=== PATIENT | female | born 1995 | race Caucasian/White ===

== ENCOUNTER 2016-08-11 14:33 | Emergency (ER) | payer OTHER ==
--- NOTE | 2016-08-11 16:18 | RAD ---
INDICATION: Pain left fifth metatarsal COMPARISON: None TECHNIQUE: AP, lateral, and oblique views were obtained. FINDINGS: The bony structures, joint spaces, and soft tissues are normal for age. IMPRESSION: NO ACUTE FRACTURE
--- NOTE | 2016-08-11 16:44 | UC ---
Lower Extremity/Ankle HPI - HPI Summary HPI Summary: Patient landed wrong sureing a cheeleading event, since then she has had pain in the lat left foot. no visible swelling noted. 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 - History of Current Complaint Chief Complaint: UCLowerExtremity Stated Complaint: LEFT FOOT INJURY Time Seen by Provider: 08/11/16 15:51 Hx Obtained From: Patient Hx Last Menstrual Period: 07/20/16 ?: No Onset/Duration: Sudden Onset, Lasting Days Severity Initially: Severe Severity Currently: Moderate Pain Intensity: 6 Pain Scale Used: 0-10 Numeric Aggravating Factor(s): Standing, Ambulation Alleviating Factor(s): Nothing Able to Bear Weight: No - Allergies/Home Medications Allergies/Adverse Reactions: Allergies Allergy/AdvReac Type Severity Reaction Status Date / Time [place] Allergy Swelling Verified 08/11/16 15:45 Of Face,Lips,& Throat Tree Nuts Allergy Swelling Verified 08/11/16 15:45 Of Face,Lips,& Throat Home Medications: Home Medications NK [No Home Medications Reported] 08/11/16 [History Confirmed 08/11/16] PMH/Surg Hx/FS Hx/Imm Hx Previously Healthy: Yes - Surgical History Surgical History: None - Family History Known Family History: Positive: Blood Disorder - factor 2 Negative: Hypertension - Social History Alcohol Use: Occasionally Substance Use Type: None Smoking Status (MU): Never Smoked Tobacco Review of Systems Constitutional: Negative Skin: Negative Eyes: Negative ENT: Negative Respiratory: Negative Cardiovascular: Negative Gastrointestinal: Negative Genitourinary: Negative Motor: Negative Neurovascular: Negative Musculoskeletal: Arthralgia Neurological: Negative Psychological: Negative All Other Systems Reviewed And Are Negative: Yes Physical Exam Triage Information Reviewed: Yes Appearance: Well-Appearing, Well-Nourished, Pain Distress Vital Signs: Initial Vital Signs Temp 98 F 08/11/16 15:38 Pulse 63 08/11/16 15:38 Resp 28 08/11/16 15:38 BP 120/68 08/11/16 15:38 Pulse Ox 100 08/11/16 15:38 Vital Signs Reviewed: Yes Eye Exam: Normal Eyes: Positive: Conjunctiva Clear ENT Exam: Normal ENT: Positive: Normal ENT inspection, Hearing grossly normal, Pharynx normal, TMs normal Dental Exam: Normal Neck exam: Normal Neck: Positive: Supple, Nontender, No Lymphadenopathy Respiratory Exam: Normal Respiratory: Positive: Chest non-tender, Lungs clear, Normal breath sounds Cardiovascular Exam: Normal Cardiovascular: Positive: RRR, No Murmur, Pulses Normal Abdominal Exam: Normal Bowel Sounds: Positive: Present Musculoskeletal: Positive: ROM Limited @ - toe extension causes pain Neurological Exam: Normal Neurological: Positive: Alert, Muscle Tone Normal Psychological Exam: Normal Skin Exam: Normal Lower Extremity Course/Dx - Course Course Of Treatment: hx obtained, exam performed, meds reviewed xray negative for fracture, Patient denies any respiratory distress, she is breathing evenly and non labored. went over warning signs of PE, as she is worried that she may have a blood clot from her foot injury. - Differential Dx/Diagnosis Differential Diagnosis/HQI/PQRI: Contusion, DVT, Fracture (Open), Sprain, Strain Provider Diagnoses: contusion Discharge - Discharge Plan Condition: Stable Disposition: HOME Patient Education Materials: Foot Contusion (ED) Additional Instructions: ibuprofen as needed for pain. use rober warp as needed. follow up in ER with any respiratory distress.
[2016-08-11 17:13] VITALS: BP 117/66
== END 2016-08-11 17:15 | disposition home or self-care (01) ==
LOC: UCCORT 14:33
DX: S90.32XA Contusion of left foot, initial encounter (principal); X58.XXXA Exposure to other specified factors, initial encounter; Y93.45 Activity, cheerleading; Y92.9 Unspecified place or not applicable
CPT/HCPCS: 99202; G0463